=== PATIENT | male | born 1960 | race Two or more races ===

== ENCOUNTER 2023-08-09 11:19 | Outpatient (CLI) | payer OTHER | END 2023-08-09 11:26 | disposition home or self-care (01) | LOC: RAD 11:19 | PROVIDERS: ATTEND Orthopaedic Surgery | DX: M25.561 Pain in right knee (principal) ==

== ENCOUNTER 2025-03-16 10:20 | Outpatient (CLI) | payer OTHER | END 2025-03-16 10:28 | disposition home or self-care (01) | LOC: SONOGRAMA 10:20 | PROVIDERS: ATTEND Internal Medicine Rheumatology | DX: M06.4 Inflammatory polyarthropathy (principal); M15.0 Primary generalized (osteo)arthritis ==